=== PATIENT | male | born 1940 | race Native Hawaiian/Other Pacific Islander ===

== ENCOUNTER 2021-10-28 09:58 | Emergency (ER) | payer OTHER ==
[~2021-10-28] VITALS: Ht 177.8 cm; Wt 75.3 kg
[2021-10-28 09:58] VITALS: BP 188/86; TEMP 98.7
[~2021-10-28 09:58] MED LIST: AMLODIPINE BESYLATE PO; ATEN50TA36 PO; B-12500 MCG PO; CORRECTOL100 MG PO; DIVA250T PO; DIVALPROEX125 MG PO; DIVALPROEX500 M1 PO; DIVALPROEX500 MG PO; DOCU100C10 PO; ESCI10TA PO; FINA5TAB2 PO; FINASTERIDE5 MG PO; HALO5INJ3 IM; LEXAPRO10 MG PO; LISI10TA11 PO; LISI20TA11 PO; MEMA5TAB PO; MIRALAX17 GM PO; MIRTAZAPINE7.5 MG PO; QUET25TA2 PO; QUETIAPINE25 MG PO; REMERON 15MG TAB PO; TYLENOL325 MG PO
[2021-10-28 10:30] LABS: PLATELET COUNT 219 K/uL (142-355)
[2021-10-28 10:49] LABS: POTASSIUM 3.7 mmol/L (3.6-5.2)
[2021-10-28] MEDS ORDERED: SEROQUEL25 MG PO (14:39)
[2021-10-29] MEDS ORDERED: ATEN25TA21 PO (11:30)
[2021-10-29] MEDS ORDERED: DIVALPROEX500 M1 PO (11:31)
[2021-10-29] MEDS ORDERED: SEROQUEL50 MG PO (11:35)
== END 2021-10-28 11:43 | disposition still patient (30) ==
LOC: ED 09:58
PROVIDERS: Hospitalist
DX: F25.8 Other schizoaffective disorders (principal); F03.91 Unspecified dementia, unspecified severity, with behavioral disturbance; Z91.83 Wandering in diseases classified elsewhere; Z11.52 Encounter for screening for COVID-19; Z04.6 Encounter for general psychiatric examination, requested by authority
CPT/HCPCS: 80053; 80164; 85027; 87635; 93005; 99283; U0003